=== PATIENT | female | born 1945 | race Caucasian/White ===

== ENCOUNTER → 2017-07-27 | Outpatient (REF) ==
[~2017-07-27] MED LIST: ALEVE 220MG220 MG; ASPI325T6 PO; ASPIRIN 81M81 MG/TA2; CALCIUM 500 W/V1 TAB; DUO-KAPS1 CAP; FAT ABSORB1 CAP; FOSAMAX 70MG TA70 MG; HORSE CHESTNUT300 MG; ILOTYCIN5 MG/GM OP; LEADER IRON TAB65 MG; LEVOXYL0.1 MG; LOPRESSOR 550 MG/TAB PO; LOTRIMIN45CR; NEURONTIN300 MG/CAP; NORCO 325 MG-51 TAB; NORCO 325 MG-7.1 TAB PO; STOOL SOFTENER100 M2; ZOCOR 20MG20 MG
== END ==
LOC: ZLAB.WCH 20:36
DX: Z01.89 Encounter for other specified special examinations (principal)

== ENCOUNTER → 2018-08-16 | Outpatient (REF) | LOC: ZLAB.WCH 16:05 | DX: Z01.89 Encounter for other specified special examinations (principal) ==

== ENCOUNTER → 2018-11-16 | Outpatient (REF) | LOC: ZLAB.WCH 12:04 | DX: Z01.89 Encounter for other specified special examinations (principal) ==

== ENCOUNTER → 2019-01-26 | Outpatient (REF) | LOC: ZLAB.WCH 17:12 | DX: Z01.89 Encounter for other specified special examinations (principal) ==

== ENCOUNTER → 2020-05-30 | Outpatient (CLI) | payer MEDICARE, BC | LOC: COL.LAB 17:19 | DX: Z01.89 Encounter for other specified special examinations (principal) ==

== ENCOUNTER → 2022-03-12 | Outpatient (CLI) | payer MEDICARE, BC ==
[2022-03-12 13:44] LABS: BASO % 0.4 % (0.0-2.0); EOS # 0.4 K/mm3 (0.0-0.7); EOS % 4.8 % (0.0-4.0); GRAN # 5.5 K/mm3 (1.4-6.5); GRAN % 75.2 % (42.2-75.2); HEMOGLOBIN 11.1 g/dl (12.5-16.0); LYMPH # 0.8 K/mm3 (1.2-3.4); LYMPH % 10.6 % (20.0-51.0); MEAN CELL VOLUME 90 fl (80.0-100.0); MEAN CORPUSCULAR HEMOGLOBIN 30 pg (27-31); MEAN CORPUSCULAR HGB CONC 34 g/dl (33.0-37.0); MEAN PLATELET VOLUME 10.6 fl (7.4-10.4); MONO # 0.6 K/mm3 (0.1-0.6); MONO % 8.5 % (1.7-9.3); PLATELET COUNT 232 K/mm3 (130-400); RED BLOOD COUNT 3.65 M/mm3 (4.10-5.30); REDCELL DISTRIBUTION WIDTH-CV 13.9 % (11.5-14.5)
[2022-03-12 13:45] LABS: INR 1.5 (0.8-3.0); PARTIAL THROMBOPLASTIN TIME 39.4 SECONDS (26.0-37.0); PROTHROMBIN TIME 17.7 SECONDS (9.7-12.8)
== END ==
LOC: ZCOL.LAB 13:04
PROVIDERS: Nurse Practitioner
DX: L53.9 Erythematous condition, unspecified (principal)

== ENCOUNTER 2024-05-30 12:13 | Inpatient (IN) | payer MEDICARE, BC ==
[~2024-05-30] VITALS: Ht 160 cm; Wt 113.8 kg
[2024-05-30] VITALS (170 sets, daily range): BP systolic 106–118; BP diastolic 46–67; PULSE 68–78; TEMP 97.8–98.1; O2SAT 63–100
[~2024-05-30 12:13] MED LIST changes: -CALCIUM 500 W/V1 TAB; +CALCIUM 600MG+D1 TAB PO; -DUO-KAPS1 CAP; +DUO-KAPS1 CAP PO; -STOOL SOFTENER100 M2; +STOOL SOFTENER100 M2 PO; -ZOCOR 20MG20 MG; +ZOCOR 20MG20 MG PO
[2024-05-30] MEDS ORDERED: *Potassium Replacement Protocol MC SCH (15:30)
[2024-05-30] MEDS ORDERED: TYLENOL 325MG325 MG PO (15:54)
[2024-05-30] MEDS ORDERED: PACERONE200 MG PO (15:55)
[2024-05-30] MEDS ORDERED: ASPIRIN 81M81 MG/TA2 PO (16:11)
[2024-05-30] MEDS ORDERED: FERROUS SU325 MG/TAB PO (16:14)
[2024-05-30] MEDS ORDERED: SYNTHROID0.125 MG/T PO (16:16)
[2024-05-30] MEDS ORDERED: PRINZIDE 12.5 M1 TAB PO (16:21)
[2024-05-30] MEDS ORDERED: LOTRISONE 0.05%1 CRE TOP (16:22)
[2024-05-30] MEDS ORDERED: PRIL40 PO (16:23)
[2024-05-30] MEDS ORDERED: ULTRAM 50MG TAB50 MG PO ×2 (16:25→16:26)
[2024-05-30 16:32] LABS: CALCIUM 9.4 mg/dL (8.4-10.2); CREATININE, serum 1.43 mg/dL (0.57-1.11); POTASSIUM 5.3 mEq/L (3.5-4.5)
[2024-05-30] MEDS ORDERED: TOPROL XL 25MG25 MG PO (16:36)
[2024-05-30] MEDS ORDERED: ZYRTEC 10MG10 MG PO (16:37)
[2024-05-30] MEDS ORDERED: VITAMIN D31000 IU PO (16:38)
[2024-05-30] MEDS ORDERED: FARXIGA10 PO (16:39)
[2024-05-30] MEDS ORDERED: ELIQUIS 5MG PO (16:39)
[2024-05-30] MEDS ORDERED: ENTRESTO 24 MG1 EACH PO (16:40)
[2024-05-30] MEDS ORDERED: PROBIOTIC-PREB1 EACH PO (16:44)
[2024-05-30] MEDS ORDERED: FIBERCON PO (16:45)
[2024-05-30] MEDS ORDERED: Amiodarone 200 MG TAB PO SCH (16:54)
[2024-05-30] MEDS ORDERED: NS 1,000 ML IV SCH (17:00)
--- NOTE | 2024-05-30 19:37 | NUR ---
PT ARRIVED VIA EMS. SHE WAS ABLE TO WALK FROM THEIR STRETCHER TO OUR BED WITH NO DIFFICULTIES. SHE IS ALERT AND ORIENTED. SHE IS ON ROOM AIR. SHE HAS ONE IV WITH NS INFUSING. SHE HAD USED A WALKER IN [place] TO AMBULATE TO THE BATHROOM DUE TO WEAKNESS. SHE HAS HER GLASSES ON. HER IS IN THE WAITING ROOM.
--- NOTE | 2024-05-30 20:00 | NUR ---
BLOOD PRESSURE LABILE. PT C/O BLOOD PRESSURE CUFF HURTING HER ARM. EXPLAINED TO PATIENT THAT HER BLOOD PRESSURE WAS LABILE. THE MOST CONSISTANT READINGS WERE BEING OBTAINED FROM HER UPPER ARM. EXPLAINED WHY IT WAS IMPORTANT FOR US TO KNOW WHAT HER BP WAS. EXPLAINED THAT WE WILL NEED TO CHECK LABS EVERY 4 HOURS TO KNOW IF HER SODIUM IS GOING UP OR DOWN.
[2024-05-30] MEDS ORDERED: Apixaban 5 MG TABLET PO SCH (21:00)
[2024-05-30 22:47] LABS: CALCIUM 8.8 mg/dL (8.4-10.2); CREATININE, serum 1.36 mg/dL (0.57-1.11); POTASSIUM 5.2 mEq/L (3.5-4.5)
[2024-05-31] VITALS (151 sets, daily range): BP systolic 99–148; BP diastolic 31–93; PULSE 56–62; TEMP 97.5–98.1; O2SAT 70–100
[2024-05-31 02:25] LABS: CALCIUM 8.6 mg/dL (8.4-10.2); CREATININE, serum 1.31 mg/dL (0.57-1.11); POTASSIUM 5.4 mEq/L (3.5-4.5)
--- NOTE | 2024-05-31 06:00 | NUR ---
PT REMAINS STABLE ON ROUNDS. PT NOT LABILE THIS MORNING. NA REMAINS IN THE 120'S. NO SIGN OF DISTRESS AT THIS TIME.
[2024-05-31 06:38] LABS: BASO % 0.4 % (0.0-2.0); EOS # 0.2 K/mm3 (0.0-0.7); EOS % 3.1 % (0.0-4.0); GRAN # 3.6 K/mm3 (1.4-6.5); GRAN % 69.1 % (42.2-75.2); LYMPH # 0.7 K/mm3 (1.2-3.4); LYMPH % 12.8 % (20.0-51.0); MEAN CELL VOLUME 91 fl (80.0-100.0); MEAN CORPUSCULAR HGB CONC 34 g/dl (33.0-37.0); MEAN PLATELET VOLUME 10.5 fl (7.4-10.4); MONO # 0.7 K/mm3 (0.1-0.6); MONO % 14.4 % (1.7-9.3); PLATELET COUNT 226 K/mm3 (130-400); RED BLOOD COUNT 3.18 M/mm3 (4.10-5.30); REDCELL DISTRIBUTION WIDTH-CV 13.1 % (11.5-14.5)
[2024-05-31 06:47] LABS: HEMATOCRIT 28.8 % (37.0-47.0); HEMOGLOBIN 9.8 g/dl (12.5-16.0); MEAN CORPUSCULAR HEMOGLOBIN 31 pg (27-31)
[2024-05-31 07:01] LABS: CALCIUM 8.3 mg/dL (8.4-10.2); CREATININE, serum 1.26 mg/dL (0.57-1.11); POTASSIUM 5.7 mEq/L (3.5-4.5)
[2024-05-31] MEDS ORDERED: BACTRIM DS 8001 TAB PO (10:32)
[2024-05-31] MEDS ORDERED: LEVAQUIN 5500 MG/TA1 PO (10:33)
[2024-05-31] MEDS ORDERED: Sodium Bicarbonate/Water,Steri 1,150 ML IV SCH (11:00)
[2024-05-31 11:12] LABS: CALCIUM 8.6 mg/dL (8.4-10.2); CREATININE, serum 1.23 mg/dL (0.57-1.11); POTASSIUM 4.8 mEq/L (3.5-4.5)
[2024-05-31 12:38] LABS: ALBUMIN 3.2 g/dL (3.4-4.8); MAGNESIUM 1.9 mg/dL (1.6-2.6)
[2024-05-31 12:45] LABS: PHOSPHOROUS 3.2 mg/dL (2.3-4.7)
[2024-05-31 12:56] LABS: CALCIUM 8.6 mg/dL (8.4-10.2); CREATININE, serum 1.25 mg/dL (0.57-1.11); POTASSIUM 4.8 mEq/L (3.5-4.5)
--- NOTE | 2024-05-31 13:12 | NUR ---
[facility] met with patient and her , Feng (ph#[phone]) at bedside to discuss discharge planning. Patient lives in [place] and sees Dr. Bebe Wen for primary care. Patient gets medications from [facility] with no current issues. Patient advised she is independent with ADLS, however does need help with socks and shoes. Patient has both a cane and walker available at home if needed. Pateint reported she has DPOA-HC completed that designates her , Feng. Patient advised her oldest son, Marquis also has a copy. Patient plans to return home at time of discharge. Discharge Plan: Home
--- NOTE | 2024-05-31 13:27 | NUR ---
PT SITTING UP AT BEDSIDE EATING LUNCH. HAS HAD NO COMPLAINTS THIS SHIFT, HAS WORKED WITH PT AND OT, ALSO COMPLETED ECHO AT BEDSIDE. IN ROOM. PT AWARE IS AWAITING TRANSFER TO MEDICAL FLOOR WHEN ROOM BECOMES AVAILABLE.
[2024-05-31 14:32] LABS: CALCIUM 8.9 mg/dL (8.4-10.2); CREATININE, serum 1.25 mg/dL (0.57-1.11); POTASSIUM 5.4 mEq/L (3.5-4.5)
--- NOTE | 2024-05-31 14:35 | NUR ---
SPOKE WITH DR. ARREAGA AT THIS TIME ABOUT MOST RECENT LABS, POTASSIUM UP TO 5.4, AND SODIUM 129 SINCE STARTING SODIUM BICARB DRIP AT 1130 TODAY. STATES OK, CONTINUE WITH SODIUM BICARB AND POTASSIUM SHOULD COME DOWN IN SUBSEQUENT LAB DRAWS. CURRENT ORDER FOR REDRAW AT 1800.
--- NOTE | 2024-05-31 15:30 | NUR ---
REPORT GIVEN TO STEPHANE CAZARES ON SURGICAL FLOOR. PT TRANSFERRED UP TO BED 327 VIA WHEELCHAIR BY RN.
--- NOTE | 2024-05-31 16:00 | NUR ---
Pt. to the floor from ICU. Pt. is A&OX3, assessment complete. IV to rt. wrist patent, IV fluids infusing per orders. Pt. denies further needs, call light within reach.
[2024-05-31 18:55] LABS: CALCIUM 8.7 mg/dL (8.4-10.2); CREATININE, serum 1.45 mg/dL (0.57-1.11); POTASSIUM 5.2 mEq/L (3.5-4.5)
--- NOTE | 2024-05-31 19:01 | NUR ---
PATIENT RESTING IN BEDSIDE RECLINER WITH FEET ELEVATED WITH TV ON WITH NO FAMILY PRESENT WITH NO ACUTE DISTRESS NOTED. PATIENT ON ROOM AIR. SODIM BICARB INFUSING INTO RIGHT FOREARM WITH NO COMPLICATIONS NOTED. TELEMETRY INTACT. BEDSIDE SHIFT REPORT COMPLETED WITH SAGE AT THIS TIME. PATIENT DENIES ANY NEEDS. BEDSIDE RECLINER LOCKED AND CALL LIGHT WITHIN REACH.
--- NOTE | 2024-05-31 19:20 | NUR ---
PATIENT RESTING SITTING UP IN BEDSIDE RECLINER WITH TV ON WITH NO FAMILY PRESENT WITH NO ACUTE DISTRESS NOTED. PATIENT ON ROOM AIR. SODIUM BICARB INFUSING INTO RIGHT WRIST WITH NO COMPLICATIONS NOTED. TELEMETRY INTACT. VITAL SIGNS AND ASSESSMENT COMPLETED AT THIS TIME. PATIENT TOLERATED WELL. PATIENT DENIES ANY NEEDS. RECLINER LOCKED AND CALL LIGHT WITHIN REACH.
--- NOTE | 2024-05-31 21:42 | NUR ---
PATIENT RESTING IN BEDSIDE RECLINER WITH TV ON WITH NO FAMILY PRESENT WITH NO ACUTE DISTRESS NOTED. PATIENT ON ROOM AIR. SODIUM BICARB INFUSING INTO RIGHT WRIST WITH NO COMPLICATIONS NOTED. TELEMETRY INTACT. MEDICATION ADMINISTRATION COMPLETED AT THIS TIME. PATIENT TOLERATED WELL. PATIENT REQUSTED HELP TO USE BATHROOM AND GO TO BED. PATIENT ASSISTED UP TO BATHROOM WITH STAND BY ASSIST. GAIT STEADY. PATIENT VOIDED AND DID OWN ELROY CARE. PATIENT ASSISTED TO BED. LAB CAME TO DRAW LAB WORK. LEFT HAND WRAPED WITH KOBAN TO HELP STOP LAB STICK FROM BLEEDING. PATIENT HELPED TO REPOSITION FOR COMFORT. ALL NEEDS MET. BED IN LOW POSITION WITH WHEELS LOCKED WITH RAILS UP X2 AND CALL LIGHT WITHIN REACH.
[2024-05-31 22:26] LABS: CALCIUM 9.3 mg/dL (8.4-10.2); CREATININE, serum 1.44 mg/dL (0.57-1.11); POTASSIUM 5.4 mEq/L (3.5-4.5)
[2024-06-01] VITALS (12 sets, daily range): BP systolic 97–136; BP diastolic 35–63; PULSE 59–69; TEMP 97.3–98.9
[2024-06-01 02:44] LABS: CALCIUM 8.6 mg/dL (8.4-10.2); CREATININE, serum 1.23 mg/dL (0.57-1.11); POTASSIUM 5.3 mEq/L (3.5-4.5)
[2024-06-01 06:31] LABS: BASO % 0.4 % (0.0-2.0); EOS # 0.3 K/mm3 (0.0-0.7); EOS % 6.1 % (0.0-4.0); GRAN % 65.8 % (42.2-75.2); LYMPH # 0.7 K/mm3 (1.2-3.4); LYMPH % 15.7 % (20.0-51.0); MEAN CELL VOLUME 94 fl (80.0-100.0); MEAN CORPUSCULAR HGB CONC 34 g/dl (33.0-37.0); MONO # 0.5 K/mm3 (0.1-0.6); MONO % 11.8 % (1.7-9.3); PLATELET COUNT 205 K/mm3 (130-400); REDCELL DISTRIBUTION WIDTH-CV 13.5 % (11.5-14.5)
[2024-06-01 06:36] LABS: HEMATOCRIT 28.1 % (37.0-47.0); HEMOGLOBIN 9.4 g/dl (12.5-16.0); MEAN CORPUSCULAR HEMOGLOBIN 31 pg (27-31)
[2024-06-01 07:10] LABS: ALBUMIN 2.8 g/dL (3.4-4.8); CALCIUM 8.4 mg/dL (8.4-10.2); CREATININE, serum 1.14 mg/dL (0.57-1.11); PHOSPHOROUS 2.8 mg/dL (2.3-4.7); POTASSIUM 5.1 mEq/L (3.5-4.5)
[2024-06-01] MEDS ORDERED: Cetirizine 10 MG TAB PO PRN (09:30)
[2024-06-01] MEDS ORDERED: Empagliflozin 10 MG TAB PO SCH (09:30)
--- NOTE | 2024-06-01 09:55 | NUR ---
SHIFT ASSESSMENT COMPLETE. VSS. PATIENT RESTING IN BED EATING BREAKFAST. PATIENT REPORTS NO PAIN AT THIS TIME. ALL MORNING MEDS GIVEN ORDERED. CALL LIGHT IN REACH
--- NOTE | 2024-06-01 20:53 | NUR ---
PATIENT RESTING IN BED WITH TV ON WITH NO FAMILY PRESENT WITH NO ACUTE DISTRESS NOTED. PATIENT ON ROOM AIR. SODIUM BICARB INFUSING INTO RIGHT WRIST WITH NO COMPLICATIONS NOTED. TELEMETRY INTACT. ASSESSMENT AND MEDICATION ADMINISTRATION COMPLETED AT THIS TIME. PATIENT TOLERATED WELL. PATIENT REQUESTED HELP TO BATHROOM. PATIENT AMBULATED TO BATHROOM WITH STAND BY ASSIST. GAIT STEADY. PATIENT VOIDED AND DID OWN ELROY CARE. PATIENT ASSISTED BACK TO BED AND HELPED TO REPOSITION FOR COMFORT. ALL NEEDS MET. BED IN LOW POSITION WITH WHEELS LOCKED WITH RAILS UP X3 AND CALL LIGHT WITHIN REACH.
[2024-06-01] MEDS ORDERED: Atorvastatin 20 MG TAB PO SCH (21:00)
--- NOTE | 2024-06-01 22:08 | NUR ---
PATIENT UP TO BATHROOM AT THIS TIME. PATIENT VOIDED AND HAD MEDIUM BOWEL MOVEMENT. PATIENT DID OWN ELROY CARE. PATIENT ASSISTED BACK TO BED WITH STAND BY ASSIST. GAIT STEADY. PATIENT ASSISTED TO REPOSITION FOR COMFORT. DRESSING TO RIGHT LOWER CALF COMING OFF AND WOULD NOT STICK BACK ON. DRESSING CHANGED WITH NEW MEPOLIX, DATED, TIMED, AND INSTRUCTION PLACED ON. PATIENT TOLERATED WELL. PATIENT DENEIS ANY OTHER NEEDS. BED IN LOW POSITION WITH WHEELS LOCKED WITH RAILS UP X2 AND CALL LIGHT WITIN REACH.
[2024-06-02] VITALS (7 sets, daily range): BP systolic 136–159; BP diastolic 59–69; PULSE 60–61; TEMP 98–98.7
[2024-06-02 06:53] LABS: BASO % 0.3 % (0.0-2.0); EOS # 0.3 K/mm3 (0.0-0.7); EOS % 5.4 % (0.0-4.0); GRAN # 4.2 K/mm3 (1.4-6.5); GRAN % 71.5 % (42.2-75.2); HEMOGLOBIN 10.1 g/dl (12.5-16.0); LYMPH # 0.7 K/mm3 (1.2-3.4); LYMPH % 11.7 % (20.0-51.0); MEAN CELL VOLUME 93 fl (80.0-100.0); MEAN CORPUSCULAR HEMOGLOBIN 31 pg (27-31); MEAN CORPUSCULAR HGB CONC 33 g/dl (33.0-37.0); MEAN PLATELET VOLUME 9.9 fl (7.4-10.4); MONO # 0.6 K/mm3 (0.1-0.6); MONO % 10.8 % (1.7-9.3); PLATELET COUNT 225 K/mm3 (130-400); RED BLOOD COUNT 3.28 M/mm3 (4.10-5.30); REDCELL DISTRIBUTION WIDTH-CV 13.5 % (11.5-14.5)
[2024-06-02 07:05] LABS: HEMATOCRIT 30.4 % (37.0-47.0)
[2024-06-02 07:21] LABS: ALBUMIN 3.1 g/dL (3.4-4.8); CALCIUM 8.9 mg/dL (8.4-10.2); CREATININE, serum 0.91 mg/dL (0.57-1.11); MAGNESIUM 2.1 mg/dL (1.6-2.6); PHOSPHOROUS 2.7 mg/dL (2.3-4.7); POTASSIUM 4.5 mEq/L (3.5-4.5)
[2024-06-02] MEDS ORDERED: BETAMETHASONE TP SCH (09:00)
[2024-06-02] MEDS ORDERED: CLOTRIMAZOLE TP SCH (09:00)
[2024-06-02] MEDS ORDERED: amLODIPine 5 MG TAB PO SCH (09:14)
[2024-06-02] MEDS ORDERED: NORVASC 5MG5 MG/TAB PO (09:15)
--- NOTE | 2024-06-02 09:25 | NUR ---
DANI was notified during clinical rounding that pt can discharge today. DANI completed IM from [employer]. She provided verbal consent due to being in isolation. Copy provided and original in chart. Discharge Plan: home
--- NOTE | 2024-06-02 10:48 | NUR ---
SHIFT ASSESSMENT COMPLETE. PATIENT AWAKE IN BED WATCHING TV. VSS. ALL MORNING MEDS GIVEN ORDERED. PATIENT REPORTS NO PAIN THIS AM AND HAS NO NEEDS AT THIS TIME. CALL LIGHT IN REACH.
== END 2024-06-02 14:00 | disposition home or self-care (01) | DRG 641 ==
LOC: IMCU 12:13 → ICU 13:54 → SURG 05-31 15:46
PROVIDERS: ADMIT Internal Medicine
DX: E87.1 Hypo-osmolality and hyponatremia (principal); N17.9 Acute kidney failure, unspecified; I87.2 Venous insufficiency (chronic) (peripheral); I48.91 Unspecified atrial fibrillation; Z66 Do not resuscitate; I10 Essential (primary) hypertension; E78.5 Hyperlipidemia, unspecified; K21.9 Gastro-esophageal reflux disease without esophagitis; E87.8 Other disorders of electrolyte and fluid balance, not elsewhere classified; E87.5 Hyperkalemia; I73.9 Peripheral vascular disease, unspecified; E86.9 Volume depletion, unspecified; T36.8X5A Adverse effect of other systemic antibiotics, initial encounter; T46.4X5A Adverse effect of angiotensin-converting-enzyme inhibitors, initial encounter; T50.2X5A Adverse effect of carbonic-anhydrase inhibitors, benzothiadiazides and other diuretics, initial encounter; E03.4 Atrophy of thyroid (acquired); E87.20 Acidosis, unspecified; M81.0 Age-related osteoporosis without current pathological fracture; Z95.0 Presence of cardiac pacemaker; Z98.51 Tubal ligation status; Z79.890 Hormone replacement therapy; Z79.899 Other long term (current) drug therapy; Z79.82 Long term (current) use of aspirin; Z87.891 Personal history of nicotine dependence; Z79.01 Long term (current) use of anticoagulants
CPT/HCPCS: A9270; J7030; Q3014